=== PATIENT | female | born 1995 | race Caucasian/White ===

== ENCOUNTER 2017-04-24 23:57 | Emergency (ER) | payer SELFPAY ==
--- NOTE | 2017-04-25 00:23 | ED Physician Documentation ---
General Adult - HISTORIAN Historian: patient, other - HPI Stated Complaint: Right Sided Rib Pain Chief Complaint: General Adult Additional Information: Right thorax pain for one hour. Pain worse with movement, cough, deep breath. Worse with deep breath or cough. No meds taken. Cough for 4 days. No fever. Last meth a week ago. - ROS CONST: no problems - PAST HX Past History: none Allergies/Adverse Reactions: Allergies Allergy/AdvReac Type Severity Reaction Status Date / Time ibuprofen [From Motrin] Allergy Severe Anaphylaxis Verified 04/25/17 00:13 morphine Allergy Intermediate Hives Verified 04/25/17 00:13 Home Medications: Ambulatory Orders Medication Instructions Recorded NK [NK] 05/28/14 - SOCIAL HX Smoking History: cigarettes Drug Use: methamphetamines - FAMILY HX Family History: No - VITAL SIGNS Vital Signs: Vital Signs Temp Pulse Resp BP Pulse Ox 98.5 F 72 18 94/72 98 04/25/17 00:00 04/25/17 00:00 04/25/17 00:00 04/25/17 00:00 04/25/17 00:00 - REVIEWED ASSESSMENTS Nursing Assessment Reviewed: Yes Vitals Reviewed: Yes General Adult Physical Exam - PHYSICAL EXAM GENERAL APPEARANCE: no distress EENT: eye inspection normal NECK: normal inspection, supple RESPIRATORY: no resp distress, breath sounds normal, other (Palpation right ribs reproduces her pain) CVS: reg rate & rhythm, heart sounds normal, no murmur ABDOMEN: soft RECTAL: deferred BACK: normal inspection SKIN: warm/dry, normal color EXTREMITIES: no evidence of injury NEURO: CN's nml as tested, motor nml, sensation nml Discharge Clincal Impression: Acute chest wall pain Referrals: Primary Doctor,No [Primary Care Provider] - 2 Days Additional Instructions: Push on the sore area if you know you are about to cough or sneeze. You can apply gentle heat or a cold pack to the sore area several times a day. Home Medications: Ambulatory Orders NK [NK] 05/28/14 Condition: Good Disposition: 01 HOME, SELF-CARE Decision to Admit: NO Decision Time: 00:22
[2017-04-25 00:35] VITALS: BP 101/68
== END 2017-04-25 00:32 | disposition home or self-care (01) ==
LOC: ED 23:57
DX: R07.89 Other chest pain (principal)
CPT/HCPCS: 99283